=== PATIENT | male | born 1965 | race Caucasian/White ===

== ENCOUNTER → 2022-03-12 14:33 | Outpatient (CLI) | payer OTHER, SELFPAY ==
--- NOTE | ~2022-03-12 | XR_ITS ---
XR chest 2V DATE: 03/12/2022 14:47 INDICATION: Cough. Acute bronchitis. TECHNIQUE: 2 views COMPARISON: 11/20/2016 PA and lateral chest FINDINGS: Normal heart size. No hilar or mediastinal enlargement. No pulmonary infiltrate or consolid ation, pleural effusion or pulmonary vascular congestion or pneumothorax is detected. Osteopenia. Plate and screws of proximal left humerus. IMPRESSION: No active cardiopulmonary disease Osteopenia Reviewed, dictated and finalized at location A.
== END ==
PROVIDERS: PCP Family Medicine; Visit Provider Nurse Practitioner Family
DX: J20.9 Acute bronchitis, unspecified (principal); M85.859 Other specified disorders of bone density and structure, unspecified thigh
CPT/HCPCS: 71046

== ENCOUNTER → 2022-05-10 11:23 | Outpatient (CLI) | payer OTHER, SELFPAY ==
--- NOTE | ~2022-05-10 | XR_ITS ---
XR shoulder RT min 2V 05/10/2022 11:43 Indication: . Right shoulder pain Procedure: 4 views right shoulder Comparison: No prior studies for comparison. Findings: There is osteoarthritis of the acromioclavicular joint. No fracture, subluxation or disloca tion. No soft tissue abnormality. No foreign bodies. Impression: 1: Mild osteoarthritis of the right acromioclavicular joint. Reviewed, dictated and finalized at location A. Impression: 1: Mild osteoarthritis of the right acromioclavicular joint.
== END ==
PROVIDERS: PCP Family Medicine; Visit Provider Nurse Practitioner Family
DX: M19.011 Primary osteoarthritis, right shoulder (principal)
CPT/HCPCS: 73030

== ENCOUNTER → 2022-05-31 14:49 | Outpatient (CLI) | payer OTHER, SELFPAY ==
--- NOTE | ~2022-05-31 | DEXA_ITS ---
Bone Density Report Name: AUGUSTINA GRIGGS Age: 56 Sex: Male Ethnicity: White Date of : 1965 Indication: prior fracture; Referring Provider: Selma Patton Study: Bone densitometry was performed. Exam Date: May 31, 2022 Accession number: [id number] Bone Density: Region BMD T-score Z-score Classification AP Spine (L1-L4) 0.914 -1.6 -1.0 Osteopenia Femoral Neck (Left) 0.551 -2.8 -1.9 Osteoporosis Total Hip (Left) 0.786 -1.6 -1.2 Osteopenia Femoral Neck (Right) 0.589 -2.5 -1.6 Osteoporosis Total Hip (Right) 0.767 -1.8 -1.3 Osteopenia Total Hip Mean 0.777 -1.7 -1.3 Osteopenia World Health Organization criteria for BMD impression classify patients as: Normal (T-score at or above -1.0), Osteopenia (T-score between -1.0 and -2.5), or Osteoporosis (T-score at or below -2.5). 10-year Fracture Risk: FRAX not reported because: Some T-score for Spine Total or Hip Total or Femoral Neck at or below -2.5 Clinical Information Provided by Patient: Has had a low trauma fracture Patient maximum height was 67.0 Drinks caffeinated beverages Impression: The patient has established osteoporosis, based on the Left Femoral Neck T-score and the existence of a prior fracture. The patient has risk factors, including: previous fracture. Discussion: HIGH RISK OF FRACTURE. BONE DENSITY IS UNDESIRABLY LOW AT ONE OR MORE SKELETAL SITES, CONSISTENT WITH OSTEOPOROSIS. This patient's lowest T-score, in a patient who has previously fractured, meets the World Health Organization's (WHO) criteria for severe osteoporosis. In untreated patients, the risk of osteoporotic fracture increases approximately two-fold for each 1.0 SD decrease in T-score. Low bone density is not the only risk factor for fracture; also consider factors such as patient's age, frailty or poor health, risk of falling, risk of injury, previous osteoporotic fracture, family history of osteoporosis, cigarette smoking, low body weight, etc. Not everyone with low bone mineral density has osteoporosis; osteomalacia and other metabolic bone disorders should also be considered. Patients who have osteoporosis should be evaluated for specific diseases and conditions (secondary causes) that may cause or contribute to bone loss. The National Osteoporosis Foundation (NOF) recommends pharmacologic intervention for men with BMD at this level (a T-score of -2.5 or below). The patient should follow a healthful lifestyle (good nutrition with adequate calcium and vitamin D, and appropriate weight-bearing exercise). Follow-Up: Consider repeating this study in 2 years to reassess this patient's status, or sooner if there is some new clinical indication. Reported by: FREDI on 05/31/2022 3:29:00 PM. Reviewed, dictated and finalized at
== END ==
PROVIDERS: PCP Family Medicine; Visit Provider Nurse Practitioner Family
DX: R93.89 Abnormal findings on diagnostic imaging of other specified body structures (principal); M85.88 Other specified disorders of bone density and structure, other site; M81.0 Age-related osteoporosis without current pathological fracture; M85.852 Other specified disorders of bone density and structure, left thigh; M85.851 Other specified disorders of bone density and structure, right thigh
CPT/HCPCS: 77080

== ENCOUNTER 2022-08-03 14:23 | Outpatient (NON) | payer OTHER, SELFPAY | END 2022-08-03 14:24 | disposition home or self-care (01) | PROVIDERS: PCP Family Medicine; Visit Provider Nurse Practitioner | DX: L57.0 Actinic keratosis (principal) | CPT/HCPCS: 88305 ==

== ENCOUNTER 2022-08-22 10:38 | Inpatient (IN) | payer OTHER, SELFPAY ==
[2022-08-22] VITALS (25 sets, daily range): BP systolic 68–134; BP diastolic 40–90; PULSE 69–118; RESP 13–34; TEMP 36.1–36.8; O2SAT 90–97; BMI 29.8
--- NOTE | ~2022-08-22 | XR_ITS ---
EXAMINATION: XR abdomen/kub 1V DATE: 08/25/2022 07:31 INDICATION: Ileus TECHNIQUE: A supine view of the abdomen on 2 radiographs was obtained. COMPARISON: CT dated 08/23/2022 FINDINGS: There are multiple gas-filled but not frankly dilated loops of small bowel throughout the abdomen. Sm all amount of gas at the transverse colon. A couple phleboliths in the pelvis. IMPRESSION: 1. Multiple gas-filled but not frankly dilated loops of small bowel consistent with provided history of ileus although differential would include early or partial small bowel obstruction. Reviewed, dictated and finalized at location A. RD CENTER SPECIALIST IMPRESSION: 1. Multiple gas-filled but not frankly dilated loops of small bowel consistent with provided history of ileus although differential would include early or par tial small bowel obstruction.
--- NOTE | ~2022-08-22 | XR_ITS ---
EXAMINATION: XR abdomen obstructive series DATE: 08/27/2022 08:31 INDICATION: Ileus TECHNIQUE: Upright and supine views of the abdomen were obtained. COMPARISON: 08/26/2022 FINDINGS: There are multiple persistently dilated loops of small bowel which demonstrate interval wor sening since yesterday's comparison. There is mild atelectasis of the left lung base. No free intrape ritoneal gas is identified. There are phleboliths of the pelvis and scrotum. Gas is seen in the colon . IMPRESSION: 1. Dilated small bowel with interval worsening, consistent with ileus versus partial obstruction. Reviewed, dictated and finalized at location B. WORKER PULLET FARM IMPRESSION: 1. Dilated small bowel with interval worsening, consistent with ileus versus pa rtial obstruction.
--- NOTE | ~2022-08-22 | XR_ITS ---
XR chest 1V DATE: 08/22/2022 11:52 INDICATION: Syncope. Chills. Nausea and vomiting. TECHNIQUE: AP chest COMPARISON: 03/12/2022 2 view chest FINDINGS: Normal heart size. No hilar or mediastinal enlargement. There may be mild infiltrate or atelectasis at the lung bases, primarily on the left. The lungs other moe appear clear. No pleural effusion or pulmonary vascular congestion or pneumothorax. Osteopenia. Plate and screws at the proximal left humerus. IMPRESSION: Possible mild infiltrate or atelectasis at the lung bases, greater on the left Reviewed, dictated and finalized at location A. NEERING TEST SPECIALIST
--- NOTE | ~2022-08-22 | XR_ITS ---
EXAMINATION: XR ribs LT 2V Exam Date/Time: 08/22/2022 18:35 HEAD WELL PULLER HISTORY: LEFT UPPER ANTERIOR RIB PAIN AFTER FALL X 2DAYS AGO Comparison: 08/22/2022 . RESULT: Lines, tubes, and devices: Uncomplicated appearing left shoulder fixation hardware. Lungs and pleura: Clear. Cardiothymic silhouette: Stable. Other: No acute osseous finding. Multiple loops of dilated small bowel in the upper abdomen. IMPRESSION: Small bowel ileus versus obstruction. Consider serial CT abdomen/pelvis with contrast for further eugenio luation. No acute cardiopulmonary process. No acute osseous finding in the left ribs. Results reported telephonically to Adriana Abdi PA-C, by Dr. Lowry at 7:00 PM on 08/22/2022. Reviewed, dictated and finalized at location K. WELL PULLER IMPRESSION: Small bowel ileus versus obstruction. Consider serial CT abdomen/pelvis with co ntrast for further evaluation. No acute cardiopulmonary process. No acute osseo us finding in the left ribs. Results reported telephonically to Adriana Abdi PA-C, by Dr. Lowry at 7:00 PM on 08/22/2022.
--- NOTE | ~2022-08-22 | XR_ITS ---
EXAMINATION: XR chest 1V portable DATE: 08/25/2022 06:09 INDICATION: COVID TECHNIQUE: frontal view of the chest was obtained. COMPARISON: Chest radiograph dated 08/22/2022 FINDINGS: Unchanged mild opacities at the bilateral lung bases which could represent atelectasis or pneumonia. No pleural effusion or pneumothorax. The cardiomediastinal silhouette is normal. Plain screw fixation at the proximal left humerus. IMPRESSION: 1. Persistent mild bibasilar opacities which could represent atelectasis or pneumonia Reviewed, dictated and finalized at location A. MAINTENANCE TECHNICIAN IMPRESSION: 1. Persistent mild bibasilar opacities which could represent atelectasis or pne umonia
--- NOTE | ~2022-08-22 | XR_ITS ---
EXAMINATION: XR abdomen obstructive series DATE: 08/26/2022 08:26 INDICATION: Ileus TECHNIQUE: Upright and supine views of the abdomen were obtained. COMPARISON: 08/25/2022 FINDINGS: There are persistently dilated loops of small bowel with interval decrease in number. No fr ee intraperitoneal gas is identified. The visualized lung bases are clear. There is a tiny amount of gas in the distal colon. Phleboliths are noted in the pelvis. IMPRESSION: 1. Persistently dilated loops of small bowel with interval decrease in number, consistent with ileus versus partial obstruction. Reviewed, dictated and finalized at location B. EKEEPER
--- NOTE | ~2022-08-22 | CT_ITS ---
EXAMINATION: CT brain wo con DATE: 08/22/2022 11:46 INDICATION: Patient fell and struck right forehead. Loss of consciousness. TECHNIQUE: Computed tomography (CT) of the head was performed without intravenous contrast. The mA wa s adjusted according to patient size. Iterative reconstruction technique was employed. Exam dose: 60 5.33 mGy-cm total exam DLP. COMPARISON: August 18/30/2017 CT brain FINDINGS: No intracranial mass lesion or hemorrhage or cerebrovascular accident. No midline shift or mass effect effect. Ventricular size is within normal range. No subdural or epidural hematoma. The orbits are unremarkable. No fracture or bone destruction of the cranial vault. IMPRESSION: No significant abnormality Reviewed, dictated and finalized at Location A. Reviewed, dictated and finalized at location A. [place] SALES MANAGER IMPRESSION: No significant abnormality
--- NOTE | ~2022-08-22 | CT_ITS ---
EXAMINATION: CT abdomen pelvis w con DATE: 08/23/2022 01:53 INDICATION: Left rib and upper abdominal pain. TECHNIQUE: Computed tomography (CT) of the abdomen and pelvis was performed with 100 mL Omnipaque-350 intravenous contrast. Automated exposure control and iterative reconstruction technique were employe d. The dose-length product was 812.61 mGy-cm. COMPARISON: 04/29/2019 FINDINGS: No significant change in chronic linear atelectasis/scarring at the bilateral lung bases. New region of groundglass opacity medial basilar right lower lobe which could represent additional atelectasis/s carring, aspiration or pneumonia. Heart size is normal. No pericardial or pleural effusion. Small sli ding-type hiatal hernia. Edematous wall thickening in the distal esophagus which could be related to reflux. Heart size is normal. No pericardial or pleural effusion. Liver, gallbladder, spleen, pancrea s, bilateral adrenal glands and right kidney are normal. Couple low-attenuation left renal cysts the larger measuring 9 mm. Fluid throughout the colon and multiple fluid-filled but not frankly dilated l oops of small bowel which tapers gradually distally with no discrete transition point to suggest obst ruction in this could be related either gastroenteritis or ileus. Normal appendix. Bladder is normal. No free intraperitoneal gas or fluid. No pathologically enlarged abdominal or pelvic lymphadenopathy . Mild lower thoracic levocurvature with mild spondylosis. IMPRESSION: 1. Fluid-filled but not likely dilated loops of large and small bowel suggesting either ileus or alberto roenteritis. 2. Bibasilar opacities which appear largely chronic atelectasis/scarring although there is a new annabel on of groundglass opacity in the medial right lung base which could represent either additional atele ctasis, aspiration or pneumonia. Reviewed, dictated and finalized at location A. [facility] IMPRESSION: 1. Fluid-filled but not likely dilated loops of large and small bowel suggestin g either ileus or gastroenteritis. 2. Bibasilar opacities which appear largely chronic atelectasis/scarring althou gh there is a new region of groundglass opacity in the medial right lung base w hich could represent either additional atelectasis, aspiration or pneumonia.
--- NOTE | 2022-08-22 10:47 | ECG_ITS ---
Measurements Intervals [place] Rate: 113 P: -5 MD: 128 QRS: 13 QRSD: 94 T: 176 QT: 315 QTc: 433 Interpretive Statements SINUS TACHYCARDIA ST-T WAVE ABNORMALITY IN ANTEROLAT/HIGH LAT LEADS- CONSIDER ISCHEMIA ABNORMAL ECG NO PREVIOUS ECG AVAILABLE FOR COMPARISON Electronically Signed On 08-22-2022 13:59:09 RN ORTHOPAEDIC by Serjio Andino D.O.
--- NOTE | 2022-08-22 11:03 | ED.SYNCOPE ---
HPI - Syncope General Chief Complaint: Syncope Stated Complaint: syncope Time Seen by Provider: 08/22/22 10:55 Source: patient and EMS Limitations: no limitations History of Present Illness HPI narrative: 56 years old white male developed shaking and cold feeling, slight runny nose and slight coughing 3 days ago, he denies any fever or chills vomiting or diarrhea. Patient was sleeping on the couch got up to feed the dog, and the way back to his couch felt weird and like need to sit then blacked out for unknown duration. Went to urgent care, referred to our emergency room. Patient reported bruises at the right shoulder, left elbow and left forehead complaint: collapsed Related Data Allergies Allergy/AdvReac Type Severity Reaction Status Date / Time No Known Allergies Allergy Verified 08/22/22 10:48 Review of Systems Review of Systems: All systems reviewed & are unremarkable except as noted in HPI and below PMFSH Past Medical History Medical History Aftercare following left shoulder joint replacement surgery BMI 29.0-29.9,adult BMI 30.0-30.9,adult Body mass index [BMI] 26.0-26.9, adult (09/20/18) Dietary counseling and surveillance (07/28/18) Ganglion cyst Humeral surgical neck fracture Ileitis Nodule of finger of right hand Physical exam, annual Screening for diabetes mellitus Screening for prostate cancer Screening for thyroid disorder Screening, lipid Tenderness of right patella Family History Family History Father Asthma Mother Cancer Sibling Diabetes mellitus Hypertension Social History Social History Smoking status: Never smoker Second hand tobacco smoke exposure: Yes Alcohol intake: current Substance use: never Substance use type: does not use 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 as tested, no gross motor deficit Course Vital Signs Vital signs: Vital Signs Temperature 36.8 C 08/22/22 10:41 Pulse Rate 117 H 08/22/22 10:41 Respiratory Rate 18 08/22/22 10:41 Pulse Oximetry 94 08/22/22 10:41 Temperature 36.8 C 08/22/22 10:41 Pulse Rate 109 H 08/22/22 18:01 Respiratory Rate 15 08/22/22 18:01 Blood Pressure 116/70 08/22/22 18:01 Pulse Oximetry 94 08/22/22 18:01 MDM - Syncope Differential Diagnosis Differential diagnosis: Likely syncope due to orthostatic hypotension, vasovagal syncope and dehydration Lab Data Result diagrams: 08/22/22 10:49 08/22/22 10:49 Labs: Lab Results 08/22/22 08/22/22 08/22/22 Range/Units 10:49 10:49 10:49 WBC 13.3 H (4.5-10.0) K/mm3 RBC 5.82 (4.6-6.20) M/mm3 Hgb 17.1 (14.0-18.0) g/dL Hct 51.5 (42.0-52.0)
[2022-08-22 11:07] LABS: Basophils Absolute Auto 0.1 K/mm3 (0.0-0.1); Basophils Percent Auto 0.4 % (0.2-1.2); Hematocrit 51.5 % (42.0-52.0); Hemoglobin 17.1 g/dL (14.0-18.0); Immature Granulocyte Absolute 0.04 K/mm3 (0.00-0.031); Immature Granulocyte Percent A 0.3 % (0-0.5); Lymphocytes Absolute Auto 1.22 K/mm3 (0.9-3.2); Lymphocytes Percent Auto 9.2 % (18.3-44.2); Mean Corpuscular HGB Conc 33.2 g/dl (32-36); Mean Corpuscular Hemoglobin 29.4 pg (26-34); Mean Corpuscular Volume 88.5 fl (80-100); Mean Platelet Volume 9.4 fl (7.4-10.4); Monocytes Absolute Auto 1.5 K/mm3 (0.1-0.6); Neutrophils Absolute Auto 10.5 K/mm3 (1.3-6.7); Neutrophils Percent Auto 79.1 % (45.5-73.1); Platelet Count Result 297 k/mm3 (150-375); Red Blood Count 5.82 M/mm3 (4.6-6.20); Red Cell Distribution Width 13.9 % (11.5-14.5); White Blood Count 13.3 K/mm3 (4.5-10.0)
[2022-08-22 11:16] LABS: Alanine Aminotransferase 35 U/L (6-50); Albumin Level 5.1 g/dL (3.5-5.1); Alkaline Phosphatase 65 U/L (38-126); Anion Gap 19 mmol/L (8-16); Aspartate Amino Transferase 47 U/L (17-59); Bilirubin,Total 0.7 mg/dL (0.2-1.3); Blood Urea Nitrogen 21 mg/dL (9-20); Calcium 9.7 mg/dL (8.4-10.2); Carbon Dioxide 23 mmol/L (22-30); Chloride 99 mmol/L (98-107); Estimated CRCL calculation 58 ml/min; Estimated Glomerular Filt Rate 57; Glucose 151 mg/dL (65-110); Potassium 4.2 mmol/L (3.4-5.0); Sodium 141 mmol/L (137-145)
[2022-08-22 11:43] LABS: Influenza A QL RT-PCR Negative (Negative); Influenza B QL RT-PCR Negative (Negative); RSV RNA, RT-PCR Negative (Negative); SARS-CoV-2 RNA PCR Positive
[2022-08-22 11:50] LABS: Appearance Urine Slightly Cloudy (Clear); Bilirubin Urine 1+ (Negative); Blood Urine Negative (Negative); Color Urine Amber (Yellow); Glucose Urine UA Trace mg/dL (Negative); Ketones Urine Trace mg/dL (Negative); Leukocyte Esterase Ur Negative LEU/UL (Negative); Nitrate Urine Negative (Negative); Protein Urine 2+ mg/dL (Negative); Specific Grav Ur >= 1.030 (1.001-1.035); Urobilinogen Urine 0.2 mg/dL (<2.0)
[2022-08-22 11:56] LABS: Bacteria Urine Trace /hpf; Calcium Oxalate Crystals Urine Present /hpf; Mucus Urine Heavy /lpf
[2022-08-22 12:01] LABS: Add Urine Microscopic? YES
--- NOTE | 2022-08-22 12:34 | ED.SYNCOPE ---
HPI - Syncope General Chief Complaint: Syncope Stated Complaint: syncope Time Seen by Provider: 08/22/22 10:55 Source: patient and EMS Limitations: no limitations History of Present Illness HPI narrative: Patient is a 56-year-old male with a history of hypertension, hypothyroidism, GERD presenting with multiple episodes of syncope. Patient states that starting yesterday he developed a dry cough and a scratchy throat. He woke up this morning and was feeding his dogs when he syncopized in his kitchen. States that he hit his head. He was able to get up and he went to urgent care where he was found to be hypotensive and he then again syncopized. When he awoke he had projectile vomited. He was then advised to come here for further evaluation. Currently, he states that he just feels tired. He states that he has some chest pain and tenderness on the left side where he thinks that he struck his chest wall. States that it only started after he fell. He denies shortness of breath. Denies fevers, abdominal pain, nausea or vomiting, diarrhea, dysuria, leg swelling. MD complaint: collapsed Related Data Allergies Allergy/AdvReac Type Severity Reaction Status Date / Time No Known Allergies Allergy Verified 08/22/22 10:48 Review of Systems Review of Systems: All systems reviewed & are unremarkable except as noted in HPI and below PMFSH Past Medical History Medical History (Updated 08/25/22 @ 15:44 by Stuart Woodard MD) Hypertension Hypothyroidism Surgical History Surgical History (Updated 08/22/22 @ 21:56 by Adriana Abdi PA-C) History of open reduction and internal fixation (ORIF) procedure Left shoulder. Family History Family History Father Asthma Mother Cancer Sibling Diabetes mellitus Hypertension Social History Social History (Updated 08/22/22 @ 21:57 by Adriana Abdi PA-C) Social History: Surrogate medical decision maker: Nicci Sutton, spouse. Code status: Full code. Smoking status: Never smoker Second hand tobacco smoke exposure: No Alcohol intake: current Alcohol use details: Social alcohol use in moderation. Substance use: never Substance use type: does not use Lack of Transportation: No Lack of Food: Never True Current Housing: I Have Housing Concerned About Future Housing: No Difficulty Paying Gas/Electric Bills: No Difficulty Paying for Meds: No Currently Unemployed: No Education: Master's Degree or Higher Difficulty w/ Childcare or Family Care: No Additional living arrangements comments: The patient lives with his in [place]. 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 Spiritual care concerns: No Exam Narrative: GENERAL: Fatigued appearing gentleman laying in bed in no acute distress HEAD: Normocephalic, atraumatic. EYES: PERRLA and EOMI. ENT: Nares clear, no rhinorrhea or epistaxis. Mucous membranes moist. NECK: Supple. CHEST: Clear to auscultation. No respiratory distress. HEART: Regular rate and rhythm. No murmur heard. Normal peripheral pulses. ABDOMEN: Soft, nontender, nondistended, normal active bowel sounds. EXTREMITIES: Normal range of motion. No edema. SKIN: Warm, dry, no rash. NEURO: No focal deficits. Alert and oriented x3. PSYCH: Normal mood and affect. Course Vital Signs Vital signs: Vital Signs Temperature 98.3 F 08/22/22 10:41 Pulse Rate 117 H 08/22/22 10:41 Respiratory Rate 18 08/22/22 10:41 Pulse Oximetry 94 08/22/22 10:41 Temperature 97.5 F L 08/27/22 16:00 Pulse Rate 93 08/27/22 16:00 Respiratory Rate 20 08/27/22 16:00 Blood Pressure 123/99 H 08/27/22 16:00 Pulse Oximetry 97 08/27/22 16:00 Oxygen Delivery Room Air 08/27/22 09:05 MDM - Syncope MDM Narrative Medical decision making narrative: Patient is a 56-year-old male presenting with multiple episodes
[2022-08-22] MEDS: SODIUM CHLORIDE 0.9% IV 1,000 ML 999 ML IV CONT ×3 (12:42→16:45)
[2022-08-22 12:56] LABS: Troponin I < 0.012 ng/mL (0.000-0.034)
[2022-08-22 14:30] LABS: Troponin I < 0.012 ng/mL (0.000-0.034)
--- NOTE | 2022-08-22 16:00 | PM.IMHP ---
H&P: HPI History of Present Illness Date/Time: 08/22/22 16:00 Chief Complaint: Syncope. Narrative: This is a very pleasant 56-year-old male with hypertension, hypothyroidism, and GERD who presented to the emergency department from urgent care for evaluation after syncopal episode. He has not felt well since Tuesday with symptoms to include sore throat, body aches, poor appetite, ongoing nausea, and nonproductive cough. This morning he was feeling about the same and while feeding his dogs he began to feel lightheaded and it seems as though he had a brief syncopal episode as he woke up on his left side on the floor. He does have a small bump on his left forehead and he has had discomfort in the left, lower anterior ribs/left upper quadrant since that time. He rested there for a few minutes and was able to get himself up. Family members insisted that he go to urgent care for evaluation and not long after arriving there he once again became lightheaded and he had a near syncopal episode followed by a large amount of emesis. He was then directed to the emergency department where he was orthostatic (116/80 to 68/40). Despite aggressive IV fluid rehydration he remains orthostatic and he is being admitted in this setting. He did test positive for SARS-CoV-[address] did not show any acute findings. Chest x-ray showed possible mild infiltrate or atelectasis at the lung bases. X-rays of the left ribs showed no fractures but did demonstrate multiple loops of dilated small bowel in the upper abdomen. With further questioning he continues to have some discomfort over the left lower anterior rib/left upper quadrant region. He continues to have mild nausea but he has not had no further episodes of vomiting. He denies overt abdominal pain, bloating, and distention. Review of Systems Review of Systems: Twelve systems were reviewed and are negative except for as per HPI. [facility] Past Medical History Medical History (Updated 08/22/22 @ 22:01 by Adriana Abdi PA-C) Hypertension Hypothyroidism Surgical History Surgical History (Updated 08/22/22 @ 21:56 by Adriana Abdi PA-C) History of open reduction and internal fixation (ORIF) procedure Left shoulder. Family History Family History Father Asthma Mother Cancer Sibling Diabetes mellitus Hypertension Social History Social History (Updated 08/22/22 @ 21:57 by Adriana Abdi PA-C) Social History: Surrogate medical decision maker: Nicci Sutton, spouse. Code status: Full code. Smoking status: Never smoker Second hand tobacco smoke exposure: No Alcohol intake: current Alcohol use details: Social alcohol use in moderation. Substance use: never Substance use type: does not use Has the Lack of Transportation Kept You From Medical Appointments or From Getting Medications?: No Within the Past 12 Months, Were You Worried Whether Your Food Would Run Out Before You Got Money to Buy More?: Never True What is Your Housing Situation Today?: I Have Housing Are You Worried That in the Next 2 Months, You May Not Have Your Own Housing to Live In?: No Do You Have Trouble Paying Your Heating Or Electricity Bill?: No Do You Have Trouble Paying For Medicines?: No Are You Currently Unemployed and Looking for Work?: No Highest Level of Education Completed: Master's Degree or Higher Do You Have Trouble With Childcare or the Care of a Family Member?: No Additional living arrangements comments: The patient lives with his in [place]. 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 Spiritual care concerns: No Meds Home Medications and Allergies Home Medications Medication Instructions Recorded Confirmed Type esomeprazole magnesium 20 mg 20 mg PO DAILY #90 caps 04/12/22 08/22/22 Rx capsule,delayed release alendronate 70 mg tablet 70 mg PO WEEKLY #4 t
[2022-08-22] MEDS: SODIUM CHLORIDE 0.9% IV 1,000 ML 125 ML IV CONT (18:48)
[2022-08-22] MEDS: HYDROcodone/acetaminophen (*CRX) 5-325 MG TABLET 1 TAB PO (18:49)
--- NOTE | 2022-08-22 22:34 | ADMGEN ---
This patient, Gallito Sutton, was admitted to [facility] Surg Room 321-01. Patient/family oriented to hospital policies and general routines including ID bracelet, bed and alarms, visiting hours, pain management, procedures, bathroom and other care routines, personal items, smoking policy, room service/diet, and visiting hours. Information on how to activate the Rapid Response Team has been discussed. Patient/Family are encouraged to report perceived risks to care and to ask questions if they do not understand what they are told or what they should do. Patient came up around 1930 pm, no complaint pain of 3, no Shortness of breath, and had 1 bout of diarrhea. Patient was asked to stand while doing ortho bp and patient stated that he could not stand that long and sat down while getting bp taking. Patient belongings are at bedside, everything important to patient is within reach. Patient is in bed, will continue to monitor.
[2022-08-23] VITALS (8 sets, daily range): BP systolic 110–139; BP diastolic 85–94; PULSE 86–99; RESP 14–18; TEMP 35.9–36.7; O2SAT 94
[2022-08-23] MEDS: PHENOL/SOD PHENO SPRAY CHERRY (*BKC) 1 SPRAY MUCOUS MEM (00:36)
[2022-08-23] MEDS: ONDANSETRON INJ 4 MG/2 ML VIAL IV PUSH ×2 (00:37→23:14)
[2022-08-23] MEDS: SODIUM CHLORIDE 0.9% IV 1,000 ML 125 ML IV CONT (06:21)
[2022-08-23 06:29] LABS: Hematocrit 46.9 % (42.0-52.0); Hemoglobin 15.7 g/dL (14.0-18.0); Mean Corpuscular HGB Conc 33.5 g/dl (32-36); Mean Corpuscular Hemoglobin 29.6 pg (26-34); Mean Corpuscular Volume 88.5 fl (80-100); Mean Platelet Volume 9.6 fl (7.4-10.4); Platelet Count Result 270 k/mm3 (150-375); Red Cell Distribution Width 13.9 % (11.5-14.5); White Blood Count 10.2 K/mm3 (4.5-10.0)
[2022-08-23 06:42] LABS: Estimated CRCL calculation 82 ml/min; Estimated Glomerular Filt Rate > 60
[2022-08-23 06:47] LABS: Anion Gap 10 mmol/L (8-16); Blood Urea Nitrogen 20 mg/dL (9-20); Calcium 7.6 mg/dL (8.4-10.2); Carbon Dioxide 23 mmol/L (22-30); Chloride 105 mmol/L (98-107); Estimated CRCL calculation 82 ml/min; Estimated Glomerular Filt Rate > 60; Glucose 128 mg/dL (65-110); Magnesium 1.9 mg/dL (1.6-2.3); Potassium 3.6 mmol/L (3.4-5.0); Sodium 138 mmol/L (137-145)
[2022-08-23 07:13] LABS: Thyroid Stimulating Hormone Reflex 0.546 uIU/mL (0.465-4.68)
[2022-08-23] MEDS: MELOXICAM 7.5 MG TABLET 15 MG PO (08:42)
[2022-08-23] MEDS: PANTOPRAZOLE 40 MG TABLET PO (08:43)
--- NOTE | 2022-08-23 08:55 | PM.IMPN ---
Progress Note: A&P Assessment and Plan (1) Syncope: Code(s): R55 - Syncope and collapse Status: Acute (2) Orthostatic hypotension: Code(s): I95.1 - Orthostatic hypotension Status: Acute (3) Dehydration: Code(s): E86.0 - Dehydration Status: Acute (4) Abnormal x-ray of abdomen: Code(s): R93.5 - Abnormal findings on diagnostic imaging of other abdominal regions, including retroperitoneum Status: Acute (5) Hypertension: Code(s): I10 - Essential (primary) hypertension Status: Acute (6) Hypothyroidism: Code(s): E03.9 - Hypothyroidism, unspecified Status: Acute (7) COVID-19 virus infection: Code(s): U07.1 - COVID-19 Status: Acute (8) BMI 30.0-30.9,adult: Code(s): Z68.30 - Body mass index [BMI] 30.0-30.9, adult Status: Acute Plan 08/22/22 The patient presented to the ED from urgent care for evaluation after syncopal episode. He has been feeling unwell for couple of days with body aches, poor appetite with poor oral intake, nausea, sore throat, and dry cough. He tested positive for SARS-CoV-2 by PCR.? Chest x-ray shows bibasilar atelectasis, infiltrates unlikely. He has no oxygen requirement thus not a candidate for dexamethasone or remdesivir. Discussed Paxlovid with the patient and we are holding on this for now. He is now quite dehydrated due to poor oral intake and I suspect his syncopal episodes are related to orthostatic hypotension due to the same. He will be monitored on telemetry overnight however to rule out cardiac dysrhythmia which seems unlikely. We will continue to aggressively hydrate him with close monitoring of volume status and orthostatic vital signs. No fractures noted on rib x-ray but there were some dilated loops of small bowel and a CT of the abdomen pelvis have been ordered for further evaluation. Fall precautions initiated. Analgesics and antiemetics available as needed. Antihypertensives on hold. Continue levothyroxine and check TSH. The rest of his home medications will be reviewed and resumed as appropriate. 08/23/22 near syncope denies LOC 2/2 dehydration w orthostasis now resolved cont NS 100cc/hr until tolerating PO COVID related GI sxs vs bacterial infection SFOB negative cont abx cough syrup will start remdesivir and dexamethasone if pt develops hypoxia out of bed to chair trial of CLD zorfran PRN am labs Subjective Date/time seen: 08/23/22 08:55 pt feeling better wants to eat no vomiting since admission does have RLQ and LLQ abd pain RUSS improved no fever no chills no SOB +cough Review of Systems Review of Systems: All systems reviewed & are unremarkable except as noted in HPI and below Exam Narrative: GEN: NAD, AAOx3, cooperative HEENT: NCAT, MMM, EOMI Neck: no JVD Heart: S1S2 RRR Lungs: bibalsilar crackles Abd: soft, TTP lower quads, ND, +BS nondistended Ext: moves all, no cyanosis, no clubbing, no edema Neuro: normal cognition, moves all extremities equally Psych: mood and affect congruent Objective Data Vital Signs Vital Signs: Vital Signs - 24 hr 08/22/22 10:41 08/22/22 12:17 08/22/22 12:20 Temperature 98.3 F Pulse Rate 117 H 111 H 114 H Respiratory Rate 18 Blood Pressure 112/89 116/80 Pulse Oximetry 94 Oxygen Delivery 08/22/22 12:21 08/22/22 10:48 08/22/22 11:01 Temperature Pulse Rate 69 115 H 118 H Respiratory Rate 24 H 13 Blood Pressure 68/40 L 111/76 112/85 Pulse Oximetry 97 96 Oxygen Delivery 08/22/22 11:16 08/22/22 12:20 08/22/22 12:22 Temperature Pulse Rate 111 H 111 H 113 H Respiratory Rate 34 H 26 H 21 H Blood Pressure 110/77 112/89 116/80 Pulse Oximetry 95 95 95 Oxygen Delivery 08/22/22 12:25 08/22/22 12:31 08/22/22 13:01 Temperature Pulse Rate 92 99 91 Respiratory Rate 20 17 25 H Blood Pressure 100/77 110/85 128/86 Pulse Oximetry 95 94 94 Oxygen Delivery 08/22/22 13:32 08/22/22 14:01
[2022-08-23 18:02] LABS: IFOB Positive Control Positive; Immunochemical Fecal Occult Bl Negative (N)
[2022-08-23] MEDS: SODIUM CHLORIDE 0.9% IV 1,000 ML 100 ML IV CONT (23:12)
[2022-08-24] VITALS (7 sets, daily range): BP systolic 109–126; BP diastolic 78–88; PULSE 78–87; RESP 14–18; TEMP 36.2–36.3; O2SAT 94–97
[2022-08-24] MEDS: LEVOTHYROXINE SODIUM 50 MCG TABLET PO (06:34)
[2022-08-24 06:39] LABS: Basophils Percent Auto 0.4 % (0.2-1.2); Eosinophils Absolute Auto 0.1 K/mm3 (0-0.3); Eosinophils Percent Auto 0.6 % (0-4.4); Hematocrit 46.7 % (42.0-52.0); Hemoglobin 15.2 g/dL (14.0-18.0); Immature Granulocyte Absolute 0.02 K/mm3 (0.00-0.031); Immature Granulocyte Percent A 0.2 % (0-0.5); Lymphocytes Absolute Auto 1.52 K/mm3 (0.9-3.2); Lymphocytes Percent Auto 18.7 % (18.3-44.2); Mean Corpuscular HGB Conc 32.5 g/dl (32-36); Mean Corpuscular Hemoglobin 29.5 pg (26-34); Mean Corpuscular Volume 90.7 fl (80-100); Mean Platelet Volume 9.3 fl (7.4-10.4); Monocytes Absolute Auto 0.9 K/mm3 (0.1-0.6); Monocytes Percent Auto 10.8 % (2.6-8.5); Neutrophils Absolute Auto 5.6 K/mm3 (1.3-6.7); Neutrophils Percent Auto 69.3 % (45.5-73.1); Platelet Count Result 244 k/mm3 (150-375); Red Blood Count 5.15 M/mm3 (4.6-6.20); Red Cell Distribution Width 13.8 % (11.5-14.5); White Blood Count 8.1 K/mm3 (4.5-10.0)
[2022-08-24 06:48] LABS: Anion Gap 14 mmol/L (8-16); Blood Urea Nitrogen 19 mg/dL (9-20); Calcium 7.3 mg/dL (8.4-10.2); Carbon Dioxide 19 mmol/L (22-30); Chloride 107 mmol/L (98-107); Estimated CRCL calculation 82 ml/min; Estimated Glomerular Filt Rate > 60; Glucose 132 mg/dL (65-110); Magnesium 2.4 mg/dL (1.6-2.3); Potassium 3.3 mmol/L (3.4-5.0); Sodium 140 mmol/L (137-145)
[2022-08-24] MEDS: MELOXICAM 7.5 MG TABLET 15 MG PO (09:35)
[2022-08-24] MEDS: PANTOPRAZOLE 40 MG TABLET PO (09:35)
--- NOTE | 2022-08-24 10:01 | PM.IMPN ---
Progress Note: A&P Assessment and Plan (1) Syncope: Code(s): R55 - Syncope and collapse Status: Acute (2) Orthostatic hypotension: Code(s): I95.1 - Orthostatic hypotension Status: Acute (3) Dehydration: Code(s): E86.0 - Dehydration Status: Acute (4) Abnormal x-ray of abdomen: Code(s): R93.5 - Abnormal findings on diagnostic imaging of other abdominal regions, including retroperitoneum Status: Acute (5) Hypertension: Code(s): I10 - Essential (primary) hypertension Status: Acute (6) Hypothyroidism: Code(s): E03.9 - Hypothyroidism, unspecified Status: Acute (7) COVID-19 virus infection: Code(s): U07.1 - COVID-19 Status: Acute (8) BMI 30.0-30.9,adult: Code(s): Z68.30 - Body mass index [BMI] 30.0-30.9, adult Status: Acute (9) Gastroenteritis due to 2019 novel coronavirus: Code(s): U07.1 - COVID-19; A08.39 - Other viral enteritis Status: Acute (10) Hypokalemia due to excessive gastrointestinal loss of potassium: Code(s): E87.6 - Hypokalemia Status: Acute Plan 08/22/22 The patient presented to the ED from urgent care for evaluation after syncopal episode. He has been feeling unwell for couple of days with body aches, poor appetite with poor oral intake, nausea, sore throat, and dry cough. He tested positive for SARS-CoV-2 by PCR.? Chest x-ray shows bibasilar atelectasis, infiltrates unlikely. He has no oxygen requirement thus not a candidate for dexamethasone or remdesivir. Discussed Paxlovid with the patient and we are holding on this for now. He is now quite dehydrated due to poor oral intake and I suspect his syncopal episodes are related to orthostatic hypotension due to the same. He will be monitored on telemetry overnight however to rule out cardiac dysrhythmia which seems unlikely. We will continue to aggressively hydrate him with close monitoring of volume status and orthostatic vital signs. No fractures noted on rib x-ray but there were some dilated loops of small bowel and a CT of the abdomen pelvis have been ordered for further evaluation. Fall precautions initiated. Analgesics and antiemetics available as needed. Antihypertensives on hold. Continue levothyroxine and check TSH. The rest of his home medications will be reviewed and resumed as appropriate. 08/23/22 near syncope denies LOC 2/2 dehydration w orthostasis now resolved cont NS 100cc/hr until tolerating PO COVID related GI sxs vs bacterial infection SFOB negative cont abx cough syrup will start remdesivir and dexamethasone if pt develops hypoxia out of bed to chair trial of CLD zorfran PRN am labs 08/24/22 suspected covid related gastroeneteritis but pt is currently being covered w [employer] for PNA as well de-escalate abx as appropriate pt remains afebrile, no leukocytosis hypokalemia; potassium repleted remains on RA monitoring COVID sxs patient reporting black diarrhea stool for occult blood is negative vomiting has stopped, start CLD and advance as tolerated repeat CXR in am last CT had early findings of PNA Subjective Date/time seen: 08/24/22 10:01 pt feeling better, no N/V continues to have diarrhea Review of Systems Review of Systems: All systems reviewed & are unremarkable except as noted in HPI and below Exam Narrative: GEN: NAD, AAOx3, cooperative HEENT: NCAT, MMM, EOMI Neck: no JVD Heart: S1S2 RRR Lungs: bibalsilar crackles Abd: soft, TTP lower quads improved from previous exam, distended, +BS nondistended Ext: moves all, no cyanosis, no clubbing, no edema Neuro: normal cognition, moves all extremities equally Psych: mood and affect congruent Objective Data Vital Signs Vital Signs: Vital Signs - 24 hr 08/23/22 13:27 08/23/22 12:00 08/23/22 16:00 Temperature 98.1 F Pulse Rate 89 96 92 Respiratory Rate 18 Blood Pressure 121/85 Pulse Oximetry 94 Oxygen Delivery 08/23/22
[2022-08-24] MEDS: POTASSIUM CHLORIDE 20 MEQ TABLET 40 MEQ PO (11:39)
[2022-08-24] MEDS: SODIUM CHLORIDE 0.9% IV 1,000 ML 100 ML IV CONT (14:59)
[2022-08-24 16:43] LABS: Vancomycin Trough 10.1 ug/mL (10.0-20.0)
[2022-08-25] VITALS (9 sets, daily range): BP systolic 117–126; BP diastolic 74–88; PULSE 78–94; RESP 17–21; TEMP 36–37.1; O2SAT 96–98
[2022-08-25] MEDS: LEVOTHYROXINE SODIUM 50 MCG TABLET PO (06:22)
[2022-08-25 06:38] LABS: Basophils Percent Auto 0.4 % (0.2-1.2); Eosinophils Absolute Auto 0.1 K/mm3 (0-0.3); Eosinophils Percent Auto 1.6 % (0-4.4); Hematocrit 43.6 % (42.0-52.0); Hemoglobin 14.6 g/dL (14.0-18.0); Immature Granulocyte Absolute 0.02 K/mm3 (0.00-0.031); Immature Granulocyte Percent A 0.3 % (0-0.5); Lymphocytes Absolute Auto 1.39 K/mm3 (0.9-3.2); Lymphocytes Percent Auto 20.6 % (18.3-44.2); Mean Corpuscular HGB Conc 33.5 g/dl (32-36); Mean Corpuscular Hemoglobin 29.4 pg (26-34); Mean Corpuscular Volume 87.7 fl (80-100); Mean Platelet Volume 9.2 fl (7.4-10.4); Monocytes Absolute Auto 0.7 K/mm3 (0.1-0.6); Monocytes Percent Auto 10.9 % (2.6-8.5); Neutrophils Absolute Auto 4.5 K/mm3 (1.3-6.7); Neutrophils Percent Auto 66.2 % (45.5-73.1); Platelet Count Result 251 k/mm3 (150-375); Red Blood Count 4.97 M/mm3 (4.6-6.20); Red Cell Distribution Width 13.2 % (11.5-14.5); White Blood Count 6.8 K/mm3 (4.5-10.0)
[2022-08-25 06:56] LABS: Anion Gap 14 mmol/L (8-16); Blood Urea Nitrogen 11 mg/dL (9-20); Calcium 7.2 mg/dL (8.4-10.2); Carbon Dioxide 17 mmol/L (22-30); Chloride 106 mmol/L (98-107); Estimated CRCL calculation 82 ml/min; Estimated Glomerular Filt Rate > 60; Glucose 110 mg/dL (65-110); Magnesium 2.1 mg/dL (1.6-2.3); Potassium 3.2 mmol/L (3.4-5.0); Sodium 137 mmol/L (137-145)
[2022-08-25] MEDS: POTASSIUM CHLORIDE 20 MEQ TABLET 40 MEQ PO (08:14)
[2022-08-25] MEDS: PANTOPRAZOLE 40 MG TABLET PO (08:15)
[2022-08-25] MEDS: MELOXICAM 7.5 MG TABLET 15 MG PO (08:15)
[2022-08-25] MEDS: ENOXAPARIN 40 MG/0.4 ML SYRINGE SUB-Q (08:15)
--- NOTE | 2022-08-25 11:18 | PCSTNOTE ---
Please refer to the Bedside Swallow Evaluation in the EMR. Please note, silent aspiration cannot be ruled out at bedside.
[2022-08-25] MEDS: SODIUM CHLORIDE 0.9% IV 1,000 ML 100 ML IV CONT (11:51)
--- NOTE | 2022-08-25 15:07 | PM.IMPN ---
Progress Note: A&P Assessment and Plan (1) Syncope: Code(s): R55 - Syncope and collapse Status: Acute (2) Ileus: Code(s): K56.7 - Ileus, unspecified Status: Acute (3) Orthostatic hypotension: Code(s): I95.1 - Orthostatic hypotension Status: Acute (4) Gastroenteritis due to 2019 novel coronavirus: Code(s): U07.1 - COVID-19; A08.39 - Other viral enteritis Status: Acute (5) COVID-19 virus infection: Code(s): U07.1 - COVID-19 Status: Acute (6) Hypokalemia due to excessive gastrointestinal loss of potassium: Code(s): E87.6 - Hypokalemia Status: Acute (7) Dehydration: Code(s): E86.0 - Dehydration Status: Acute (8) Hypertension: Code(s): I10 - Essential (primary) hypertension Status: Acute (9) Hypothyroidism: Code(s): E03.9 - Hypothyroidism, unspecified Status: Acute Plan 08/22/22 The patient presented to the ED from urgent care for evaluation after syncopal episode. He has been feeling unwell for couple of days with body aches, poor appetite with poor oral intake, nausea, sore throat, and dry cough. He tested positive for SARS-CoV-2 by PCR.? Chest x-ray shows bibasilar atelectasis, infiltrates unlikely. He has no oxygen requirement thus not a candidate for dexamethasone or remdesivir. Discussed Paxlovid with the patient and we are holding on this for now. He is now quite dehydrated due to poor oral intake and I suspect his syncopal episodes are related to orthostatic hypotension due to the same. He will be monitored on telemetry overnight however to rule out cardiac dysrhythmia which seems unlikely. We will continue to aggressively hydrate him with close monitoring of volume status and orthostatic vital signs. No fractures noted on rib x-ray but there were some dilated loops of small bowel and a CT of the abdomen pelvis have been ordered for further evaluation. Fall precautions initiated. Analgesics and antiemetics available as needed. Antihypertensives on hold. Continue levothyroxine and check TSH. The rest of his home medications will be reviewed and resumed as appropriate. 08/23/22 near syncope denies LOC 2/2 dehydration w orthostasis now resolved cont NS 100cc/hr until tolerating PO COVID related GI sxs vs bacterial infection SFOB negative cont abx cough syrup will start remdesivir and dexamethasone if pt develops hypoxia out of bed to chair trial of CLD zorfran PRN am labs 08/24/22 suspected covid related gastroeneteritis but pt is currently being covered w [employer] for PNA as well de-escalate abx as appropriate pt remains afebrile, no leukocytosis hypokalemia; potassium repleted remains on RA monitoring COVID sxs patient reporting black diarrhea stool for occult blood is negative vomiting has stopped, start CLD and advance as tolerated repeat CXR in am last CT had early findings of PNA 08/25/22 Diet was advanced. Patient was some mild abdominal discomfort. X-ray today continues to show multiple gas filled but not dilated small bowel consistent with ileus. Will decrease diet to full liquid tonight. Repeat x-ray in the morning. Will stop his fluids. There was a question about aspiration so a bedside swallow evaluation was performed which showed patient did not have evidence of aspiration. Will deescalate antibiotics today. Potassium replaced. Metabolic acidosis related to the diarrhea. EKG noted; could be related to electrolyte abnormalities or chronic. Repeat EKG. Continue to follow Subjective Date/time seen: 08/25/22 15:07 Interval history: 56yo male with HTN here for syncope and found to have COVID. Assuming care. Chart reviewed. Had diarrhea this monring but no BMs since. Toelrating oral intake but with abd pain. No n/v. No flatus. No lightheadedness with standing. He is up walking to the bathroom Exam Narrative: AF 98.7 119/87 82 17 97% ra Gen - NARD Chest -few scattered rh
[2022-08-25] MEDS: levoFLOXacin 500 MG/D5W 100 ML 500 MG/100 ML BAG 100 MG IVPB (16:29)
[2022-08-25] MEDS: metroNIDAZOLE 500 MG/ISO 100ML 500 MG/100 ML BAG 100 MG IVPB (22:01)
[2022-08-26] VITALS (12 sets, daily range): BP systolic 111–135; BP diastolic 65–94; PULSE 75–90; RESP 16; TEMP 36.1–36.4; O2SAT 96–97
[2022-08-26] MEDS: LEVOTHYROXINE SODIUM 50 MCG TABLET PO (05:06)
[2022-08-26] MEDS: metroNIDAZOLE 500 MG/ISO 100ML 500 MG/100 ML BAG 100 MG IVPB ×3 (05:07→22:23)
[2022-08-26 06:53] LABS: Anion Gap 10 mmol/L (8-16); Blood Urea Nitrogen 9 mg/dL (9-20); Calcium 7.8 mg/dL (8.4-10.2); Carbon Dioxide 19 mmol/L (22-30); Chloride 104 mmol/L (98-107); Estimated CRCL calculation 93 ml/min; Estimated Glomerular Filt Rate > 60; Glucose 97 mg/dL (65-110); Potassium 3.4 mmol/L (3.4-5.0); Sodium 133 mmol/L (137-145)
[2022-08-26] MEDS: PANTOPRAZOLE 40 MG TABLET PO (08:39)
[2022-08-26] MEDS: POTASSIUM CHLORIDE 20 MEQ TABLET 40 MEQ PO (08:39)
[2022-08-26] MEDS: MELOXICAM 7.5 MG TABLET 15 MG PO (08:39)
[2022-08-26] MEDS: ENOXAPARIN 40 MG/0.4 ML SYRINGE SUB-Q (08:39)
--- NOTE | 2022-08-26 11:28 | ECG_ITS ---
Measurements Intervals [place] Rate: 88 P: 5 NM: 148 QRS: 7 QRSD: 101 T: 26 QT: 379 QTc: 461 Interpretive Statements SINUS RHYTHM VOLTAGE CRITERIA FOR LVH BORDERLINE ST-T WAVE ABNORMALITY- DIFFUSE LEADS BASELINE WANDER- II, III, V1-V6 BORDERLINE ECG COMPARED TO ECG 08/22/2022 10:40:11 SIN[address]M NOW PRESENT ST-T WAVE ABNORMALITY IN ANTEROLAT/HIGH LAT LEADS- CONSIDER ISCHEMIA NOW PRESENT Electronically Signed On 08-26-2022 12:01:28 ACID CUTTER by Serjio Andino D.O.
--- NOTE | 2022-08-26 14:02 | PM.IMPN ---
Progress Note: A&P Assessment and Plan (1) Syncope: Code(s): R55 - Syncope and collapse Status: Acute (2) Ileus: Code(s): K56.7 - Ileus, unspecified Status: Acute (3) Orthostatic hypotension: Code(s): I95.1 - Orthostatic hypotension Status: Acute (4) Gastroenteritis due to 2019 novel coronavirus: Code(s): U07.1 - COVID-19; A08.39 - Other viral enteritis Status: Acute (5) COVID-19 virus infection: Code(s): U07.1 - COVID-19 Status: Acute (6) Hypokalemia due to excessive gastrointestinal loss of potassium: Code(s): E87.6 - Hypokalemia Status: Acute (7) Dehydration: Code(s): E86.0 - Dehydration Status: Acute (8) Hypertension: Code(s): I10 - Essential (primary) hypertension Status: Acute (9) Hypothyroidism: Code(s): E03.9 - Hypothyroidism, unspecified Status: Acute Plan 08/22/22 The patient presented to the ED from urgent care for evaluation after syncopal episode. He has been feeling unwell for couple of days with body aches, poor appetite with poor oral intake, nausea, sore throat, and dry cough. He tested positive for SARS-CoV-2 by PCR.? Chest x-ray shows bibasilar atelectasis, infiltrates unlikely. He has no oxygen requirement thus not a candidate for dexamethasone or remdesivir. Discussed Paxlovid with the patient and we are holding on this for now. He is now quite dehydrated due to poor oral intake and I suspect his syncopal episodes are related to orthostatic hypotension due to the same. He will be monitored on telemetry overnight however to rule out cardiac dysrhythmia which seems unlikely. We will continue to aggressively hydrate him with close monitoring of volume status and orthostatic vital signs. No fractures noted on rib x-ray but there were some dilated loops of small bowel and a CT of the abdomen pelvis have been ordered for further evaluation. Fall precautions initiated. Analgesics and antiemetics available as needed. Antihypertensives on hold. Continue levothyroxine and check TSH. The rest of his home medications will be reviewed and resumed as appropriate. 08/23/22 near syncope denies LOC 2/2 dehydration w orthostasis now resolved cont NS 100cc/hr until tolerating PO COVID related GI sxs vs bacterial infection SFOB negative cont abx cough syrup will start remdesivir and dexamethasone if pt develops hypoxia out of bed to chair trial of CLD zorfran PRN am labs 08/24/22 suspected covid related gastroeneteritis but pt is currently being covered w [employer] for PNA as well de-escalate abx as appropriate pt remains afebrile, no leukocytosis hypokalemia; potassium repleted remains on RA monitoring COVID sxs patient reporting black diarrhea stool for occult blood is negative vomiting has stopped, start CLD and advance as tolerated repeat CXR in am last CT had early findings of PNA 08/25/22 Diet was advanced. Patient was some mild abdominal discomfort. X-ray today continues to show multiple gas filled but not dilated small bowel consistent with ileus. Will decrease diet to full liquid tonight. Repeat x-ray in the morning. Will stop his fluids. There was a question about aspiration so a bedside swallow evaluation was performed which showed patient did not have evidence of aspiration. Will deescalate antibiotics today. Potassium replaced. Metabolic acidosis related to the diarrhea. EKG noted; could be related to electrolyte abnormalities or chronic. Repeat EKG. Continue to follow 08/26/22 KUB showing decrease in the dilated loops. Continue full liquid diet. Repeat x-ray in the morning. Repeat EKG showing improvement in the ST and T-wave changes. Will check echocardiogram. Patient will need a outpatient stress test once he is well. Non gap metabolic acidosis again noted but improved felt related to his diarrhea. Continue tele Subjective Date/time seen: 08/26/22 14:02 Interval history:
[2022-08-26] MEDS: levoFLOXacin 500 MG/D5W 100 ML 500 MG/100 ML BAG 100 MG IVPB (16:07)
[2022-08-27] VITALS: BP 129/89; PULSE 78; RESP 18; TEMP 36.9; O2SAT 96
--- NOTE | 2022-08-27 | ECHO_ITS ---
Patient Info Name: Gallito Sutton Age: 56 years : 1965 Gender: Male Ht: 67 in Wt: 193 lbs BSA: 2.06 m2 HR: 78 bpm BP: 129 / 90 mmHg Heart Rhythm: Sinus Rhythm Technical Quality: Good Exam Date: 08/27/2022 9:10 AM Exam Location: [facility] Pulmonary Patient Status: Inpatient Admit Date: 08/24/2022 Staff Ordering Physician: Stuart Woodard MD Die Cut Operator: Kerry Montoya RDCS Attending Provider: Josué Devries MD Exam Type: CA echo doppler color flow Study Info Indications R94.31 - Abnormal electrocardiogram ECG EKG Complete two-dimensional, color flow and Doppler transthoracic echocardiogram is performed. Summary 1. Complete two-dimensional, color flow and Doppler transthoracic echocardiogram is performed. 2. Left ventricular chamber dimension is normal. 3. Left ventricular systolic function is normal, estimated at 65-70%. 4. No significant valvular dysfunction. Left Ventricle Left ventricular chamber dimension is normal. Left ventricular systolic function is normal, estimated at 65-70%. The left ventricular diastolic function is grade I diastolic dysfunction. Right Ventricle Right ventricular chamber dimension is normal. Left Atria Left atrial chamber dimension is normal. Right Atria Right atrial chamber dimension is normal. Aortic Valve The aortic valve is normal. Pulmonic Valve The pulmonic valve is normal. Mitral Valve The mitral valve has normal leaflets. Tricuspid Valve The tricuspid valve leaflets are normal. There is trace tricuspid valve regurgitation. Pericardium/Pleural The pericardium appears normal. Aorta The aortic root size at the sinus of Valsalva is normal. Left Ventricular Outflow Tract Name Value Normal LVOT 2D LVOT Diameter 2.0 cm LVOT Doppler LVOT Peak Gradient 4 mmHg LVOT Mean Gradient 2 mmHg LVOT VTI 19 cm LVOT VTI/AV VTI Ratio 0.8 LVOT Stroke Volume 60 ml LVOT CO 4.8 l/min LVOT CI 2.3 l/min/m2 Pulmonic Valve Name Value Normal RVOT Doppler RVOT Peak Gradient 3 mmHg PV Doppler PV Peak Gradient 5 mmHg Mitral Valve Name Value Normal MV Doppler MV Decel Mcmullen 356 cm/s2 MV PHT 53 ms MV Area (PHT) 4.1 cm2 4.0-5.
[2022-08-27 04:00] VITALS: BP 129/90; PULSE 73; PULSE 84; RESP 18; TEMP 36.6; O2SAT 96
[2022-08-27] MEDS: metroNIDAZOLE 500 MG/ISO 100ML 500 MG/100 ML BAG 100 MG IVPB ×2 (05:56→14:59)
[2022-08-27] MEDS: LEVOTHYROXINE SODIUM 50 MCG TABLET PO (05:56)
[2022-08-27 06:59] LABS: Anion Gap 10 mmol/L (8-16); Blood Urea Nitrogen 7 mg/dL (9-20); Calcium 8.2 mg/dL (8.4-10.2); Carbon Dioxide 20 mmol/L (22-30); Chloride 105 mmol/L (98-107); Estimated CRCL calculation 93 ml/min; Estimated Glomerular Filt Rate > 60; Glucose 101 mg/dL (65-110); Potassium 3.7 mmol/L (3.4-5.0); Sodium 135 mmol/L (137-145)
[2022-08-27 08:00] VITALS: BP 132/87; PULSE 77; PULSE 81; RESP 20; TEMP 36.1; O2SAT 98
[2022-08-27] MEDS: ENOXAPARIN 40 MG/0.4 ML SYRINGE SUB-Q (08:33)
[2022-08-27] MEDS: MELOXICAM 7.5 MG TABLET 15 MG PO (08:34)
[2022-08-27] MEDS: PANTOPRAZOLE 40 MG TABLET PO (08:34)
[2022-08-27 09:41] VITALS: BP 125/90; BP 126/90
[2022-08-27 12:00] VITALS: BP 120/96; PULSE 102; PULSE 95; RESP 20; TEMP 36.4; O2SAT 98
[2022-08-27] MEDS: levoFLOXacin 500 MG/D5W 100 ML 500 MG/100 ML BAG 100 MG IVPB (14:59)
[2022-08-27] MEDS: polyethylene glycoL 3350 17 GM POWD.PACK PO (14:59)
[2022-08-27 16:00] VITALS: BP 123/99; PULSE 86; PULSE 93; RESP 20; TEMP 36.4; O2SAT 97
--- NOTE | 2022-08-27 16:13 | PM.DS ---
DS: Admitting Diagnosis Discharge Date 08/27/22 Admitting Diagnosis Syncope DS: Discharge Diagnosis Discharge Diagnosis (1) Syncope: Code(s): R55 - Syncope and collapse Status: Acute (2) Ileus: Code(s): K56.7 - Ileus, unspecified Status: Acute (3) Orthostatic hypotension: Code(s): I95.1 - Orthostatic hypotension Status: Acute (4) Gastroenteritis due to 2019 novel coronavirus: Code(s): U07.1 - COVID-19; A08.39 - Other viral enteritis Status: Acute (5) COVID-19 virus infection: Code(s): U07.1 - COVID-19 Status: Acute (6) Hypokalemia due to excessive gastrointestinal loss of potassium: Code(s): E87.6 - Hypokalemia Status: Acute (7) Dehydration: Code(s): E86.0 - Dehydration Status: Acute (8) Hypertension: Code(s): I10 - Essential (primary) hypertension Status: Acute (9) Hypothyroidism: Code(s): E03.9 - Hypothyroidism, unspecified Status: Acute DS: Summary Hospital Course Reason for hospitalization: 56yo male with HTN here for syncope and found to have COVID. Please see H&P for details Hospital Course: The patient presented to the ED from urgent care for evaluation after syncopal episode. He has been feeling unwell for couple of days with body aches and he tested positive for SARS-CoV-2 by PCR.? Chest x-ray shows bibasilar atelectasis, infiltrates unlikely. He had no oxygen requirement thus not a candidate for dexamethasone or remdesivir. He was dehydrated due to poor oral intake and diarrhea and felt his syncopal episodes related to orthostatic hypotension. He was monitored on telemetry. He was hydrated. Suspected COVID related gastroenteritis. Patient was covered with abx. X-ray today continued to show multiple gas filled but not dilated small bowel consistent with ileus. He did have a colonoscopy about 2 years ago was negative. Metabolic acidosis related to the diarrhea. EKG changes noted felt related to electrolyte abnormalities. Repeat ekg showed improvement. No chest pain. Echo showing EF 65%-70% with grade I diastolic dysfunction. Patient will need a outpatient stress test once he is well. His diet was advanced. Spoke with surgery who felt patient could be discharged with close observation. Patient feels ready discharge. Long discussion with the patient. Recommend that he stay on a soft low residue diet for at least 5-7 days. recommend patient call his doctor or return to the emergency room if he develops bloating, nausea, vomiting and/or no stool output. Status at Discharge Cognitive/behavioral status at discharge: Stable Time Spent with Patient Time attestation: Total time spent providing and/or coordinating discharge services: 35 minutes Time spent: Greater than 30 minutes Exam Narrative: AF 97.5 123/99 86 20 97% ra Gen - NARD Chest - CTA bilaterally, nml RR CV - RRR S1/S2 Abd - soft, NT/ND, +BS Ext - No pedal edema Psych - Nml mood and affect Skin - Warm and dry DS: Data Data Completed and Pending Labs on day of discharge: Labs from last 24 hours 08/27/22 06:11 Sodium 135 L Potassium 3.7 Chloride 105 Carbon Dioxide 20 L Anion Gap 10 BUN 7 L Creatinine 0.80 Estim Creat Clear Calc 93 Estimated GFR > 60 Glucose 101 Calcium 8.2 L Discharge Plan Discharge Attending physician on discharge: Stuart Woodard Discharging Clinician: Stuart Woodard Anticipated Discharge Date/Time: 08/27/22 16:53 Patient Disposition: Home, Self-Care Activity: as tolerated Diet: heart healthy and low fiber Discharge Instructions: Please avoid large gathering, wear face coverings in public and practice social distance. Take precautions to avoid falls. Rise slowly from a lying or sitting position. Pause before standing or walking. Contact your doctor or call 911 and come to the Emergency Room if you have any chest pain, nausea/vomiting,
== END 2022-08-27 17:15 | disposition home or self-care (01) | DRG 178 ==
LOC: ANHED 12:01 → ANH3MEDSUR 18:13
PROVIDERS: Emergency Medicine; Hospitalist; Internal Medicine; Physician Assistant; Admitting Provider Internal Medicine; Emergency Provider Emergency Medicine; PCP Family Medicine; Visit Provider Internal Medicine
DX: U07.1 COVID-19 (principal); A08.39 Other viral enteritis; K56.7 Ileus, unspecified; I95.1 Orthostatic hypotension; I10 Essential (primary) hypertension; E03.9 Hypothyroidism, unspecified; K21.9 Gastro-esophageal reflux disease without esophagitis; E86.0 Dehydration; E87.6 Hypokalemia; Z79.899 Other long term (current) drug therapy
CPT/HCPCS: 36415; 70450; 71045; 71100; 74018; 74019; 74177; 80048; 80053; 80202; 81001; 82274; 82565; 83735; 84443; 84484; 85025; 85027; 87637; 92610; 93005; 93306; 96360; 96361; 96365; 96366; 96367; 96375; 96376; 99285; A9270; G0378; J1650; J1956; J2405; J2543; J3370; J7030; Q9967

== ENCOUNTER → 2022-09-03 14:34 | Outpatient (CLI) | payer OTHER, SELFPAY ==
--- NOTE | ~2022-09-03 | XR_ITS ---
XR chest 2V 09/03/2022 14:41 Indication: Cough. Procedure: 2 view chest Comparison: 08/25/2022 and 08/22/2022 Findings: Heart size normal. There is right basilar atelectasis/scarring. No focal pneumonia, edema, pleural effusion or pneumothorax. Postoperative changes of the left humerus noted proximally. No acut e osseous abnormality. Impression: 1: Right basilar atelectasis/scarring. Reviewed, dictated and finalized at location A. [employer] Impression: 1: Right basilar atelectasis/scarring.
== END ==
PROVIDERS: PCP Family Medicine; Visit Provider Nurse Practitioner Family
DX: R05.9 Cough, unspecified (principal); J98.11 Atelectasis
CPT/HCPCS: 71046

== ENCOUNTER 2025-07-10 14:15 | Outpatient (CLI) | payer OTHER, SELFPAY ==
--- NOTE | ~2025-07-10 | DEXA_ITS ---
Bone Density Report Name: AUGUSTINA GRIGGS Age: 59 Sex: Male Ethnicity: White Date of : 1965 Indication: osteopenia; monitoring treatment; Referring Provider: Yanira Villarreal Study: Bone densitometry was performed. Exam Date: July 10, 2025 Accession number: [id number] Bone Density: Region BMD T-score Z-score Classification AP Spine(L1-L4) 0.910 -1.6 -1.0 Osteopenia Femoral Neck (Left) 0.621 -2.3 -1.3 Osteopenia Total Hip (Left) 0.796 -1.6 -1.1 Osteopenia Femoral Neck (Right) 0.594 -2.5 -1.5 Osteoporosis Total Hip (Right) 0.787 -1.6 -1.2 Osteopenia Total Hip Mean 0.791 -1.6 -1.2 Osteopenia World Health Organization criteria for BMD impression classify patients as: Normal (T-score at or above -1.0), Osteopenia (T-score between -1.0 and -2.5), or Osteoporosis (T-score at or below -2.5). 10-year Fracture Risk: FRAX not reported because: Some T-score for Spine Total or Hip Total or Femoral Neck at or below -2.5 Treated for osteoporosis Previous Exams: -- Region Exam Age BMD T-score BMD Change BMD Change Date g/cm2 vs Baseline vs Previous -- AP Spine (L1-L4) 07/10/2025 59 0.910 -1.6 -0.5% -0.5% 05/31/2022 56 0.914 -1.6 Total Hip(Left) 07/10/2025 59 0.796 -1.6 1.2% 1.2% 05/31/2022 56 0.786 -1.6 Total Hip(Right) 07/10/2025 59 0.787 -1.6 2.6% 2.6% 05/31/2022 56 0.767 -1.8 -- *Denotes significance at 95% confidence level, LSC for AP Spine = 0.022 g/cm2, LSC for Total Hip = 0.027 g/cm2 Clinical Information Provided by Patient: Is being treated for osteoporosis Has used the following medications: Calcium, Alendronate sodium Patient maximum height was 67 No regular weight bearing exercise Drinks caffeinated beverages Impression: The patient has osteoporosis, based on the Right Femoral Neck T-score. No significant bone loss was observed. Discussion: PATIENT UNDER TREATMENT WITH NO SIGNIFICANT BMD LOSS SINCE LAST EXAM. In an untreated patient, BMD typically declines with age. A lack of decline or gain is usually a sign that treatment is efficacious and fracture risk is reduced. It is important to ask patients whether they are taking their medications and to encourage continued and appropriate compliance with their osteoporosis therapies to reduce fracture risk. It is also important to review their risk factors and encourage appropriate calcium and vitamin D intakes, exercise, fall prevention and other lifestyle measures. Follow-Up: Consider repeating this study in 2 years to reassess this patient's status, or sooner if there is some new clinical indication. Reported by: JOSE ALEJANDRO on 07/10/2025 3:02:00 PM. Reviewed, dictated and finalized at location A.
== END 2025-07-10 14:16 | disposition home or self-care (01) ==
LOC: MICIMG 14:17
PROVIDERS: PCP Family Medicine; Visit Provider Nurse Practitioner Family
DX: M81.0 Age-related osteoporosis without current pathological fracture (principal); Z79.83 Long term (current) use of bisphosphonates; M85.88 Other specified disorders of bone density and structure, other site; M85.852 Other specified disorders of bone density and structure, left thigh; M85.851 Other specified disorders of bone density and structure, right thigh
CPT/HCPCS: 77080